=== PATIENT | female | born 1940 | race Caucasian/White ===

== ENCOUNTER 2025-02-07 14:31 | Emergency (ER) | payer MEDICARE, OTHER | END 2025-02-07 15:55 | disposition home or self-care (01) | LOC: JD.ED 14:31 | DX: I74.3 Embolism and thrombosis of arteries of the lower extremities (principal); I82.812 Embolism and thrombosis of superficial veins of left lower extremity; Z91.041 Radiographic dye allergy status; Z79.899 Other long term (current) drug therapy | CPT/HCPCS: 99283; A9270 ==